=== PATIENT | male | born 1965 | race Caucasian/White ===

== ENCOUNTER 2020-09-22 10:10 | Observation (INO) ==
[2020-09-22] MEDS ORDERED: *HR* LORazepam 2 MG/ML VIAL ONE (10:16)
[2020-09-22] MEDS ORDERED: levETIRAcetam 1,000 MG in 0.9 % Sodium Chloride 100 ML IVPB ONE (10:20)
[2020-09-22] MEDS ORDERED: 0.9 % Sodium Chloride 1,000 ML IVC ONE (10:20)
[2020-09-22] MEDS ORDERED: Dexamethasone 4 MG/ML VIAL IVP ONE (10:20)
[2020-09-22] MEDS ORDERED: Ondansetron 4 MG/2 ML VIAL IVP ONE (10:22)
[2020-09-22] MEDS ORDERED: *HR* LORazepam 2 MG/ML VIAL IVP ONE (10:31)
[2020-09-22 10:49] LABS: Basophils % 0.3 %; Eosinophils % 0.1 %; Hematocrit 49.3 % (37.5-50.1); Hemoglobin 16.1 g/dL (12.9-16.9); Immature Granulocytes % 1.1 % (0-4); Lymphocytes # 3.9 K/mcL (0.6-4.6); Mean Corpuscular HGB Conc 32.7 g/dL (31.6-35.5); Mean Corpuscular Hemoglobin 30.8 pg (28.0-33.3); Mean Corpuscular Volume 94.3 fL (83.0-100.0); Mean Platelet Volume 11.3 fL (9.4-12.4); Monocytes # 0.8 K/mcL (0.0-1.3); Monocytes % 5.4 %; Neutrophils # 9.9 K/mcL (1.6-8.9); Platelet Count 120 K/mcL (140-400); Red Blood Count 5.23 M/mcL (4.19-5.50); Red Cell Distribution Width 13.4 % (11.5-14.5); Segmented Neutrophils % 67.1 %; White Blood Count 14.8 K/mcL (4.3-11.1)
[2020-09-22 11:11] LABS: Alanine Aminotransferase 16 Units/L (7-52); Albumin 4.2 g/dL (3.5-5.7); Albumin/Globulin Ratio 1.6 (1.1-2.2); Alkaline Phosphatase 58 Units/L (34-104); Aspartate Amino Transferase 18 Units/L (13-39); BUN/Creatinine Ratio 13 (6-26); Bilirubin,Total 0.7 mg/dL (0.3-1.0); Blood Urea Nitrogen 9 mg/dL (6-20); Calcium 8.9 mg/dL (8.6-10.3); Carbon Dioxide 31 mEq/L (23-29); Chloride 102 mEq/L (98-107); Globulin 2.7 g/dL (2.4-3.5); Glucose 161 mg/dL (70-105); Magnesium 1.9 mg/dL (1.6-2.6); Osmolality,Calculated 290 (280-300); Potassium 3.7 mEq/L (3.5-5.1); Sodium 139 mEq/L (136-145); Total Protein 6.9 g/dL (6.4-8.9); eGFR For African Americans > 60 (> 60); eGFR For Non-African Americans > 60 (> 60)
[2020-09-22] MEDS ORDERED: Ondansetron 4 MG/2 ML VIAL IVP PRN (16:22)
[2020-09-22] MEDS ORDERED: Naloxone 0.4 MG/ML INJ IVP PRN (16:22)
[2020-09-22] MEDS ORDERED: 0.9 % Sodium Chloride 1,000 ML IVC SCH (16:45)
[2020-09-22] MEDS ORDERED: *HR* LORazepam 1 MG TABLET PO PRN (16:48)
[2020-09-22] MEDS ORDERED: *HR* Heparin 5,000 UNIT/ML VIAL SQ SCH (18:00)
[2020-09-22] MEDS ORDERED: Ketorolac 15 MG/ML VIAL IVP ONE (19:24)
[2020-09-22] MEDS ORDERED: Melatonin 3 MG TABLET PO SCH (21:00)
[2020-09-22] MEDS ORDERED: levETIRAcetam 250 MG TABLET PO SCH (21:00)
[2020-09-22] MEDS ORDERED: LACOSAMIDE 200 MG PO SCH (21:00)
[2020-09-22] MEDS ORDERED: Divalproex (12 HR) 500 MG TABLET PO SCH (21:00)
[2020-09-22 23:58] VITALS: BP 149/94
[2020-09-23] MEDS ORDERED: TROSPIUM CHLORIDE 60 MG PO SCH (09:00)
[2020-09-23] MEDS ORDERED: amLODIPine 5 MG TABLET PO SCH (09:00)
[2020-09-23] MEDS ORDERED: FLUoxetine 20 MG CAPSULE PO SCH (09:00)
== END 2020-09-22 21:17 | disposition short-term general hospital (02) ==
LOC: EMEROOARM 10:10 → 2NNU 10:10
PROVIDERS: ADMIT General Practice; ATTEND General Practice

== ENCOUNTER 2021-03-14 16:08 | Observation (INO) ==
[2021-03-14] MEDS ORDERED: Isovue-370 500 ML BOTTLE IVP ONE (19:08)
[2021-03-14] MEDS ORDERED: Tdap (Boostrix) Vaccine 0.5 ML SYRINGE IM ONE (19:11)
[2021-03-14 19:26] LABS: Basophils # 0.1 K/mcL (0.0-0.2); Basophils % 0.7 %; Eosinophils # 0.4 K/mcL (0.0-0.6); Eosinophils % 5.6 %; Hematocrit 42.9 % (37.5-50.1); Hemoglobin 14.3 g/dL (12.9-16.9); Immature Granulocytes % 0.3 % (0-4); Lymphocytes # 2.6 K/mcL (0.6-4.6); Lymphocytes % 37.8 %; Mean Corpuscular HGB Conc 33.3 g/dL (31.6-35.5); Mean Corpuscular Hemoglobin 31.3 pg (28.0-33.3); Mean Corpuscular Volume 93.9 fL (83.0-100.0); Mean Platelet Volume 11.4 fL (9.4-12.4); Monocytes # 0.9 K/mcL (0.0-1.3); Monocytes % 12.4 %; Platelet Count 163 K/mcL (140-400); Red Blood Count 4.57 M/mcL (4.19-5.50); Red Cell Distribution Width 12.5 % (11.5-14.5); Segmented Neutrophils % 43.2 %; White Blood Count 6.8 K/mcL (4.3-11.1)
[2021-03-14 19:42] LABS: INR 1.1; Prothrombin Time 12.8 Seconds (9.4-12.1)
[2021-03-14 19:53] LABS: Alanine Aminotransferase 18 Units/L (7-52); Albumin/Globulin Ratio 1.5 (1.1-2.2); Alkaline Phosphatase 69 Units/L (34-104); Aspartate Amino Transferase 27 Units/L (13-39); BUN/Creatinine Ratio 16 (6-26); Bilirubin,Direct 0.1 mg/dL (0.0-0.2); Bilirubin,Indirect 0.5 mg/dL (0.0-1.0); Bilirubin,Total 0.6 mg/dL (0.3-1.0); Blood Urea Nitrogen 14 mg/dL (6-20); Calcium 9.3 mg/dL (8.6-10.3); Carbon Dioxide 32 mEq/L (23-29); Chloride 102 mEq/L (98-107); Globulin 2.6 g/dL (2.4-3.5); Glucose 90 mg/dL (70-105); Lipase 33 Units/L (11-82); Osmolality,Calculated 294 (280-300); Sodium 142 mEq/L (136-145); Total Protein 6.6 g/dL (6.4-8.9); Troponin I < 0.03 ng/mL (< 0.04); eGFR For African Americans > 60 (> 60); eGFR For Non-African Americans > 60 (> 60)
[2021-03-14 20:04] LABS: Bilirubin,Urine Negative (Negative); Blood,Urine Negative (Negative); Clarity,Urine Clear (Clear); Color,Urine Yellow (Yellow); Glucose,Urine (UA) Normal (Normal); Ketones,Urine Trace mg/dL (Negative); Leukocyte Esterase,Urine Negative (Negative); Nitrite,Urine Negative (Negative); Protein,Urine Trace mg/dL (Neg-Trace); Specific Gravity,Urine 1.027 (1.010-1.025)
[2021-03-14] MEDS ORDERED: levETIRAcetam 250 MG TABLET PO ONE (22:00)
[2021-03-14] MEDS ORDERED: Divalproex (12 HR) 500 MG TABLET PO ONE (22:00)
[2021-03-14] MEDS ORDERED: Potassium Chloride Elixir 20 MEQ/15 ML UDC PO ONE (22:04)
[2021-03-15] MEDS ORDERED: Naloxone 0.4 MG/ML INJ IVP PRN (00:26)
[2021-03-15 02:05] LABS: Basophils % 0.5 %; Hemoglobin 12.9 g/dL (12.9-16.9)
[2021-03-15 02:07] LABS: Eosinophils # 0.3 K/mcL (0.0-0.6); Eosinophils % 4.6 %; Hematocrit 38.3 % (37.5-50.1); Immature Granulocytes % 0.1 % (0-4); Immature Platelets 4.8 % (1.1-6.1); Lymphocytes # 2.4 K/mcL (0.6-4.6); Lymphocytes % 32.9 %; Mean Corpuscular HGB Conc 33.7 g/dL (31.6-35.5); Mean Corpuscular Hemoglobin 31.4 pg (28.0-33.3); Mean Corpuscular Volume 93.2 fL (83.0-100.0); Mean Platelet Volume 11.1 fL (9.4-12.4); Monocytes # 0.9 K/mcL (0.0-1.3); Monocytes % 11.8 %; Neutrophils # 3.7 K/mcL (1.6-8.9); Platelet Count 137 K/mcL (140-400); Red Blood Count 4.11 M/mcL (4.19-5.50); Red Cell Distribution Width 12.5 % (11.5-14.5); Segmented Neutrophils % 50.1 %; White Blood Count 7.4 K/mcL (4.3-11.1)
[2021-03-15 02:22] LABS: BUN/Creatinine Ratio 12 (6-26); Blood Urea Nitrogen 9 mg/dL (6-20); Calcium 8.6 mg/dL (8.6-10.3); Carbon Dioxide 28 mEq/L (23-29); Chloride 106 mEq/L (98-107); Glucose 139 mg/dL (70-105); Osmolality,Calculated 295 (280-300); Potassium 3.2 mEq/L (3.5-5.1); Sodium 142 mEq/L (136-145); eGFR For African Americans > 60 (> 60); eGFR For Non-African Americans > 60 (> 60)
[2021-03-15] MEDS: *HR* Heparin 5,000 UNIT/ML VIAL SQ SCH ×3 (05:19→20:50)
[2021-03-15] MEDS: levETIRAcetam 250 MG TABLET PO SCH ×2 (08:34→20:48)
[2021-03-15] MEDS: Vitamin E 200 UNIT (90MG) CAPSULE PO SCH ×2 (08:35→20:46)
[2021-03-15] MEDS: FLUoxetine 20 MG CAPSULE PO SCH (08:35)
[2021-03-15] MEDS: amLODIPine 5 MG TABLET PO SCH ×2 (08:36→20:50)
[2021-03-15] MEDS: Divalproex (12 HR) 500 MG TABLET PO SCH ×2 (08:36→20:48)
[2021-03-15] MEDS: Ascorbic Acid 500 MG TABLET PO SCH ×2 (08:36→20:49)
[2021-03-15] MEDS: hydroCHLOROthiazide 25 MG TABLET PO SCH (08:36)
[2021-03-15] MEDS: Cholecalciferol (D-3) 1,000 UNIT (25MCG) TABLET PO SCH (08:39)
[2021-03-15] MEDS ORDERED: LACOSAMIDE 200 MG PO SCH (09:00)
[2021-03-15] MEDS: Acetaminophen 325 MG TABLET PO SCH (20:47)
[2021-03-16] MEDS: Acetaminophen 325 MG TABLET PO SCH ×4 (00:34→17:03)
[2021-03-16 01:28] LABS: Basophils % 0.4 %; Eosinophils # 0.3 K/mcL (0.0-0.6); Eosinophils % 4.2 %; Hematocrit 38.1 % (37.5-50.1); Hemoglobin 12.7 g/dL (12.9-16.9); Immature Granulocytes % 0.3 % (0-4); Immature Platelets 5.6 % (1.1-6.1); Lymphocytes # 2.8 K/mcL (0.6-4.6); Lymphocytes % 41.9 %; Mean Corpuscular HGB Conc 33.3 g/dL (31.6-35.5); Mean Corpuscular Hemoglobin 31.1 pg (28.0-33.3); Mean Corpuscular Volume 93.2 fL (83.0-100.0); Mean Platelet Volume 11.2 fL (9.4-12.4); Monocytes # 0.8 K/mcL (0.0-1.3); Monocytes % 12.1 %; Neutrophils # 2.8 K/mcL (1.6-8.9); Platelet Count 138 K/mcL (140-400); Red Blood Count 4.09 M/mcL (4.19-5.50); Red Cell Distribution Width 12.4 % (11.5-14.5); Segmented Neutrophils % 41.1 %; White Blood Count 6.7 K/mcL (4.3-11.1)
[2021-03-16 01:43] LABS: BUN/Creatinine Ratio 11 (6-26); Blood Urea Nitrogen 8 mg/dL (6-20); Calcium 8.8 mg/dL (8.6-10.3); Carbon Dioxide 29 mEq/L (23-29); Chloride 105 mEq/L (98-107); Glucose 101 mg/dL (70-105); Magnesium 1.7 mg/dL (1.6-2.6); Osmolality,Calculated 294 (280-300); Potassium 3.3 mEq/L (3.5-5.1); Sodium 143 mEq/L (136-145); eGFR For African Americans > 60 (> 60); eGFR For Non-African Americans > 60 (> 60)
[2021-03-16] MEDS: *HR* Heparin 5,000 UNIT/ML VIAL SQ SCH ×3 (04:46→20:24)
[2021-03-16] MEDS: amLODIPine 5 MG TABLET PO SCH ×2 (07:41→20:23)
[2021-03-16] MEDS: Cholecalciferol (D-3) 1,000 UNIT (25MCG) TABLET PO SCH (07:41)
[2021-03-16] MEDS: Ascorbic Acid 500 MG TABLET PO SCH ×2 (07:42→20:23)
[2021-03-16] MEDS: Vitamin E 200 UNIT (90MG) CAPSULE PO SCH ×2 (07:42→20:23)
[2021-03-16] MEDS: FLUoxetine 20 MG CAPSULE PO SCH (07:42)
[2021-03-16] MEDS: hydroCHLOROthiazide 25 MG TABLET PO SCH (07:42)
[2021-03-16] MEDS: Divalproex (12 HR) 500 MG TABLET PO SCH ×2 (07:45→20:33)
[2021-03-16] MEDS: levETIRAcetam 250 MG TABLET PO SCH ×2 (07:45→20:32)
[2021-03-17] MEDS: Acetaminophen 325 MG TABLET PO SCH ×2 (00:16→06:24)
[2021-03-17] MEDS: *HR* Heparin 5,000 UNIT/ML VIAL SQ SCH ×3 (06:24→21:10)
[2021-03-17] MEDS: Vitamin E 200 UNIT (90MG) CAPSULE PO SCH ×2 (07:55→21:07)
[2021-03-17] MEDS: Cholecalciferol (D-3) 1,000 UNIT (25MCG) TABLET PO SCH (07:55)
[2021-03-17] MEDS: hydroCHLOROthiazide 25 MG TABLET PO SCH (07:55)
[2021-03-17] MEDS: amLODIPine 5 MG TABLET PO SCH ×2 (07:56→21:08)
[2021-03-17] MEDS: FLUoxetine 20 MG CAPSULE PO SCH (07:56)
[2021-03-17] MEDS: levETIRAcetam 250 MG TABLET PO SCH ×2 (07:59→21:07)
[2021-03-17] MEDS: Ascorbic Acid 500 MG TABLET PO SCH ×2 (08:00→21:08)
[2021-03-17] MEDS: Divalproex (12 HR) 500 MG TABLET PO SCH ×2 (08:00→21:08)
[2021-03-17] MEDS: Acetaminophen 325 MG TABLET PO PRN (13:56)
[2021-03-18] MEDS: Acetaminophen 325 MG TABLET PO PRN (02:47)
[2021-03-18] MEDS: *HR* Heparin 5,000 UNIT/ML VIAL SQ SCH ×3 (05:41→20:26)
[2021-03-18] MEDS: Cholecalciferol (D-3) 1,000 UNIT (25MCG) TABLET PO SCH (08:47)
[2021-03-18] MEDS: Vitamin E 200 UNIT (90MG) CAPSULE PO SCH ×2 (08:47→20:25)
[2021-03-18] MEDS: hydroCHLOROthiazide 25 MG TABLET PO SCH (08:47)
[2021-03-18] MEDS: Divalproex (12 HR) 500 MG TABLET PO SCH ×2 (08:47→20:25)
[2021-03-18] MEDS: FLUoxetine 20 MG CAPSULE PO SCH (08:47)
[2021-03-18] MEDS: levETIRAcetam 250 MG TABLET PO SCH ×2 (08:48→20:25)
[2021-03-18] MEDS: Ascorbic Acid 500 MG TABLET PO SCH ×2 (08:49→20:25)
[2021-03-18] MEDS: amLODIPine 5 MG TABLET PO SCH ×2 (08:49→20:25)
[2021-03-18] MEDS: Ibuprofen 400 MG TABLET PO PRN ×2 (08:58→15:51)
[2021-03-19] MEDS: *HR* Heparin 5,000 UNIT/ML VIAL SQ SCH ×3 (05:59→21:05)
[2021-03-19] MEDS: Ascorbic Acid 500 MG TABLET PO SCH ×2 (08:24→21:08)
[2021-03-19] MEDS: amLODIPine 5 MG TABLET PO SCH ×2 (08:24→21:08)
[2021-03-19] MEDS: Ibuprofen 400 MG TABLET PO PRN ×4 (08:24→21:07)
[2021-03-19] MEDS: FLUoxetine 20 MG CAPSULE PO SCH (08:25)
[2021-03-19] MEDS: levETIRAcetam 250 MG TABLET PO SCH ×2 (08:25→23:26)
[2021-03-19] MEDS: Cholecalciferol (D-3) 1,000 UNIT (25MCG) TABLET PO SCH (08:25)
[2021-03-19] MEDS: Divalproex (12 HR) 500 MG TABLET PO SCH ×2 (08:25→23:27)
[2021-03-19] MEDS: Vitamin E 200 UNIT (90MG) CAPSULE PO SCH ×2 (08:25→21:07)
[2021-03-19] MEDS: hydroCHLOROthiazide 25 MG TABLET PO SCH (08:26)
[2021-03-20] MEDS: *HR* Heparin 5,000 UNIT/ML VIAL SQ SCH ×3 (06:30→22:38)
[2021-03-20] MEDS: Ibuprofen 400 MG TABLET PO PRN ×2 (10:49→22:41)
[2021-03-20] MEDS: Ascorbic Acid 500 MG TABLET PO SCH ×2 (10:49→22:40)
[2021-03-20] MEDS: Vitamin E 200 UNIT (90MG) CAPSULE PO SCH ×2 (10:49→22:41)
[2021-03-20] MEDS: Cholecalciferol (D-3) 1,000 UNIT (25MCG) TABLET PO SCH (10:50)
[2021-03-20] MEDS: FLUoxetine 20 MG CAPSULE PO SCH (10:50)
[2021-03-20] MEDS: hydroCHLOROthiazide 25 MG TABLET PO SCH (10:50)
[2021-03-20] MEDS: amLODIPine 5 MG TABLET PO SCH ×2 (10:50→22:41)
[2021-03-20] MEDS: Divalproex (12 HR) 500 MG TABLET PO SCH (11:02)
[2021-03-20] MEDS: levETIRAcetam 250 MG TABLET PO SCH ×2 (11:02→22:40)
[2021-03-21] MEDS: Divalproex (12 HR) 500 MG TABLET PO SCH ×3 (01:32→22:08)
[2021-03-21] MEDS: Ibuprofen 400 MG TABLET PO PRN ×2 (06:38→16:36)
[2021-03-21] MEDS: *HR* Heparin 5,000 UNIT/ML VIAL SQ SCH ×3 (06:39→22:08)
[2021-03-21] MEDS: Vitamin E 200 UNIT (90MG) CAPSULE PO SCH ×2 (09:42→22:03)
[2021-03-21] MEDS: amLODIPine 5 MG TABLET PO SCH ×2 (09:43→22:03)
[2021-03-21] MEDS: hydroCHLOROthiazide 25 MG TABLET PO SCH (09:43)
[2021-03-21] MEDS: Ascorbic Acid 500 MG TABLET PO SCH ×2 (09:43→22:03)
[2021-03-21] MEDS: Cholecalciferol (D-3) 1,000 UNIT (25MCG) TABLET PO SCH (09:43)
[2021-03-21] MEDS: FLUoxetine 20 MG CAPSULE PO SCH (09:44)
[2021-03-21] MEDS: levETIRAcetam 250 MG TABLET PO SCH ×2 (09:48→22:08)
[2021-03-21] MEDS ORDERED: *HR* OxyCODONE Immed Rel 5 MG TABLET PO PRN (10:14)
[2021-03-22] MEDS: *HR* Heparin 5,000 UNIT/ML VIAL SQ SCH (05:35)
[2021-03-22 06:45] VITALS: TEMP 98; O2SAT 92
[2021-03-22] MEDS: Vitamin E 200 UNIT (90MG) CAPSULE PO SCH (08:38)
[2021-03-22] MEDS: Ascorbic Acid 500 MG TABLET PO SCH (08:38)
[2021-03-22] MEDS: FLUoxetine 20 MG CAPSULE PO SCH (08:38)
[2021-03-22] MEDS: Cholecalciferol (D-3) 1,000 UNIT (25MCG) TABLET PO SCH (08:39)
[2021-03-22] MEDS: hydroCHLOROthiazide 25 MG TABLET PO SCH (08:39)
[2021-03-22] MEDS: amLODIPine 5 MG TABLET PO SCH (08:39)
[2021-03-22] MEDS: Divalproex (12 HR) 500 MG TABLET PO SCH (08:40)
[2021-03-22] MEDS: levETIRAcetam 250 MG TABLET PO SCH (08:42)
[2021-03-22 10:57] LABS: Adenovirus Not Detected (Not Detect); Bordetella Pertussis Not Detected (Not Detect); Coronavirus 229E Not Detected (Not Detect); Coronavirus HKU1 Not Detected (Not Detect); Coronavirus NL63 Not Detected (Not Detect); Coronavirus OC43 Not Detected (Not Detect); Human Metapneumovirus Not Detected (Not Detect); Human Rhinovirus/Enterovirus Not Detected (Not Detect); Influenza A Subtype 2009 H1 Not Detected (Not Detect); Influenza B Not Detected (Not Detect); Parainfluenza Virus 1 Not Detected (Not Detect); Parainfluenza Virus 2 Not Detected (Not Detect); Parainfluenza Virus 3 Not Detected (Not Detect); Parainfluenza Virus 4 Not Detected (Not Detect); Respiratory Syncytial Virus Not Detected (Not Detect); SARS-CoV-2 Not Detected (Not Detect)
[2021-03-22 10:58] LABS: Chlamydophila pneumoniae Not Detected (Not Detect); Mycoplasma pneumoniae Not Detected (Not Detect)
[2021-03-22 11:13] VITALS: BP 138/74; PULSE 60
== END 2021-03-22 13:47 ==
LOC: EMEROOARM 16:08 → 2ANU 16:08 → SUATTDRO 23:42 → 2ANU 03-15 00:48
PROVIDERS: ADMIT Internal Medicine; ATTEND Internal Medicine

== ENCOUNTER 2021-04-16 16:22 | Observation (INO) ==
[2021-04-16] MEDS ORDERED: diazePAM 10 MG/2 ML SYRINGE IM ONE (16:48)
[2021-04-16] MEDS ORDERED: Ketorolac 15 MG/ML VIAL IM ONE (16:48)
[2021-04-16 20:35] LABS: Basophils % 0.2 %; Eosinophils # 0.1 K/mcL (0.0-0.6); Hematocrit 33.9 % (37.5-50.1); Hemoglobin 11.3 g/dL (12.9-16.9); Immature Granulocytes % 0.4 % (0-4); Lymphocytes # 2.5 K/mcL (0.6-4.6); Lymphocytes % 24.4 %; Mean Corpuscular HGB Conc 33.3 g/dL (31.6-35.5); Mean Corpuscular Volume 93.1 fL (83.0-100.0); Mean Platelet Volume 12.1 fL (9.4-12.4); Monocytes # 1.1 K/mcL (0.0-1.3); Neutrophils # 6.4 K/mcL (1.6-8.9); Platelet Count 109 K/mcL (140-400); Red Blood Count 3.64 M/mcL (4.19-5.50); Red Cell Distribution Width 12.7 % (11.5-14.5); White Blood Count 10.1 K/mcL (4.3-11.1)
[2021-04-16 20:55] LABS: Alanine Aminotransferase 8 Units/L (7-52); Albumin 3.4 g/dL (3.5-5.7); Albumin/Globulin Ratio 1.5 (1.1-2.2); Alkaline Phosphatase 50 Units/L (34-104); Aspartate Amino Transferase 18 Units/L (13-39); BUN/Creatinine Ratio 13 (6-26); Bilirubin,Total 0.6 mg/dL (0.3-1.0); Blood Urea Nitrogen 11 mg/dL (6-20); Calcium 8.5 mg/dL (8.6-10.3); Carbon Dioxide 30 mEq/L (23-29); Chloride 103 mEq/L (98-107); Globulin 2.3 g/dL (2.4-3.5); Glucose 101 mg/dL (70-105); Osmolality,Calculated 292 (280-300); Potassium 3.6 mEq/L (3.5-5.1); Sodium 141 mEq/L (136-145); Total Protein 5.7 g/dL (6.4-8.9); eGFR For African Americans > 60 (> 60); eGFR For Non-African Americans > 60 (> 60)
[2021-04-16] MEDS ORDERED: Naloxone 0.4 MG/ML INJ IVP PRN (21:23)
[2021-04-16] MEDS ORDERED: Melatonin 3 MG TABLET PO PRN (21:23)
[2021-04-16] MEDS ORDERED: Ondansetron 4 MG/2 ML VIAL IVP PRN (21:23)
[2021-04-16] MEDS ORDERED: *HR* Promethazine 25 MG/ML VIAL IM PRN (21:23)
[2021-04-16] MEDS ORDERED: 0.9 % Sodium Chloride 1,000 ML IVC SCH (21:30)
[2021-04-16] MEDS: levETIRAcetam 250 MG TABLET PO SCH (22:26)
[2021-04-16] MEDS: amLODIPine 5 MG TABLET PO SCH (22:26)
[2021-04-16] MEDS: Divalproex (12 HR) 500 MG TABLET PO SCH (22:26)
[2021-04-16] MEDS: *HR* OxyCODONE/APAP 7.5/325 TABLET PO PRN (22:33)
[2021-04-17] MEDS: *HR* HYDROcodone/Acet 5/325 mg TABLET PO PRN ×3 (05:14→22:17)
[2021-04-17] MEDS: *HR* Heparin 5,000 UNIT/ML VIAL SQ SCH ×2 (05:15→16:49)
[2021-04-17 05:19] LABS: Basophils % 0.3 %; Hemoglobin 11.2 g/dL (12.9-16.9); Red Cell Distribution Width 12.5 % (11.5-14.5)
[2021-04-17 05:21] LABS: Eosinophils # 0.2 K/mcL (0.0-0.6); Eosinophils % 2.6 %; Hematocrit 33.6 % (37.5-50.1); Immature Granulocytes % 0.4 % (0-4); Immature Platelets 6.2 % (1.1-6.1); Lymphocytes # 2.5 K/mcL (0.6-4.6); Lymphocytes % 32.7 %; Mean Corpuscular HGB Conc 33.3 g/dL (31.6-35.5); Mean Corpuscular Hemoglobin 30.9 pg (28.0-33.3); Mean Corpuscular Volume 92.6 fL (83.0-100.0); Mean Platelet Volume 11.8 fL (9.4-12.4); Monocytes # 0.9 K/mcL (0.0-1.3); Monocytes % 12.1 %; Neutrophils # 3.9 K/mcL (1.6-8.9); Red Blood Count 3.63 M/mcL (4.19-5.50); Segmented Neutrophils % 51.9 %; White Blood Count 7.6 K/mcL (4.3-11.1)
[2021-04-17 05:23] LABS: Platelet Count 89 K/mcL (140-400)
[2021-04-17 05:39] LABS: Alanine Aminotransferase 5 Units/L (7-52); Albumin 3.2 g/dL (3.5-5.7); Albumin/Globulin Ratio 1.5 (1.1-2.2); Alkaline Phosphatase 50 Units/L (34-104); Aspartate Amino Transferase 12 Units/L (13-39); BUN/Creatinine Ratio 14 (6-26); Bilirubin,Total 0.6 mg/dL (0.3-1.0); Blood Urea Nitrogen 9 mg/dL (6-20); Calcium 8.3 mg/dL (8.6-10.3); Carbon Dioxide 29 mEq/L (23-29); Chloride 105 mEq/L (98-107); Globulin 2.1 g/dL (2.4-3.5); Glucose 98 mg/dL (70-105); Osmolality,Calculated 289 (280-300); Potassium 2.8 mEq/L (3.5-5.1); Sodium 140 mEq/L (136-145); Total Protein 5.3 g/dL (6.4-8.9); eGFR For African Americans > 60 (> 60); eGFR For Non-African Americans > 60 (> 60)
[2021-04-17] MEDS: levETIRAcetam 250 MG TABLET PO SCH ×2 (08:46→21:36)
[2021-04-17] MEDS: Zinc Sulfate 220 MG CAPSULE PO SCH (08:47)
[2021-04-17] MEDS: Ascorbic Acid 500 MG TABLET PO SCH ×2 (08:47→21:36)
[2021-04-17] MEDS: Vitamin E 200 UNIT (90MG) CAPSULE PO SCH ×3 (08:47→21:36)
[2021-04-17] MEDS: Cholecalciferol (D-3) 1,000 UNIT (25MCG) TABLET PO SCH (08:47)
[2021-04-17] MEDS: FLUoxetine 20 MG CAPSULE PO SCH (08:47)
[2021-04-17] MEDS: Divalproex (12 HR) 500 MG TABLET PO SCH ×2 (08:47→21:36)
[2021-04-17] MEDS: amLODIPine 5 MG TABLET PO SCH ×2 (08:48→21:36)
[2021-04-17] MEDS: Losartan/HCTZ 50-12.5 TABLET PO SCH (08:48)
[2021-04-17] MEDS: *HR* OxyCODONE/APAP 7.5/325 TABLET PO PRN (08:56)
[2021-04-17] MEDS: Acetaminophen 325 MG TABLET PO PRN (16:48)
[2021-04-18] MEDS: *HR* Heparin 5,000 UNIT/ML VIAL SQ SCH ×2 (06:03→20:50)
[2021-04-18] MEDS ORDERED: Simethicone 80 MG TAB.CHEW PO PRN (06:07)
[2021-04-18] MEDS: *HR* OxyCODONE/APAP 7.5/325 TABLET PO PRN ×3 (06:12→23:16)
[2021-04-18] MEDS: Acetaminophen 325 MG TABLET PO PRN (08:42)
[2021-04-18] MEDS: Losartan/HCTZ 50-12.5 TABLET PO SCH (09:27)
[2021-04-18] MEDS: Cholecalciferol (D-3) 1,000 UNIT (25MCG) TABLET PO SCH (09:27)
[2021-04-18] MEDS: Vitamin E 200 UNIT (90MG) CAPSULE PO SCH ×3 (09:27→20:50)
[2021-04-18] MEDS: FLUoxetine 20 MG CAPSULE PO SCH (09:27)
[2021-04-18] MEDS: Zinc Sulfate 220 MG CAPSULE PO SCH (09:28)
[2021-04-18] MEDS: Ascorbic Acid 500 MG TABLET PO SCH ×2 (09:28→20:50)
[2021-04-18] MEDS: amLODIPine 5 MG TABLET PO SCH ×2 (09:28→20:50)
[2021-04-18] MEDS: levETIRAcetam 250 MG TABLET PO SCH ×2 (09:29→20:50)
[2021-04-18] MEDS: Divalproex (12 HR) 500 MG TABLET PO SCH ×2 (09:29→20:50)
[2021-04-19] MEDS: *HR* Heparin 5,000 UNIT/ML VIAL SQ SCH ×2 (05:22→17:55)
[2021-04-19] MEDS: Vitamin E 200 UNIT (90MG) CAPSULE PO SCH ×3 (08:41→20:29)
[2021-04-19] MEDS: Ascorbic Acid 500 MG TABLET PO SCH ×2 (08:42→20:29)
[2021-04-19] MEDS: levETIRAcetam 250 MG TABLET PO SCH ×2 (08:42→20:28)
[2021-04-19] MEDS: Losartan/HCTZ 50-12.5 TABLET PO SCH (08:42)
[2021-04-19] MEDS: Zinc Sulfate 220 MG CAPSULE PO SCH (08:42)
[2021-04-19] MEDS: FLUoxetine 20 MG CAPSULE PO SCH (08:42)
[2021-04-19] MEDS: Cholecalciferol (D-3) 1,000 UNIT (25MCG) TABLET PO SCH (08:43)
[2021-04-19] MEDS: Divalproex (12 HR) 500 MG TABLET PO SCH ×2 (08:43→20:28)
[2021-04-19] MEDS: amLODIPine 5 MG TABLET PO SCH ×2 (08:43→20:28)
[2021-04-19] MEDS: *HR* OxyCODONE/APAP 7.5/325 TABLET PO PRN ×2 (10:38→20:28)
[2021-04-19] MEDS: *HR* HYDROcodone/Acet 5/325 mg TABLET PO PRN (12:54)
[2021-04-19] MEDS: Sennosides/Docusate Sodium TABLET PO PRN (20:29)
[2021-04-20] MEDS: *HR* HYDROcodone/Acet 5/325 mg TABLET PO PRN ×2 (04:11→20:54)
[2021-04-20] MEDS: *HR* Heparin 5,000 UNIT/ML VIAL SQ SCH ×2 (04:11→17:06)
[2021-04-20 08:11] LABS: BUN/Creatinine Ratio 16 (6-26); Blood Urea Nitrogen 13 mg/dL (6-20); Calcium 8.5 mg/dL (8.6-10.3); Carbon Dioxide 30 mEq/L (23-29); Chloride 104 mEq/L (98-107); Glucose 93 mg/dL (70-105); Magnesium 1.9 mg/dL (1.6-2.6); Osmolality,Calculated 290 (280-300); Phosphorous 5.2 mg/dL (2.7-4.5); Potassium 3.7 mEq/L (3.5-5.1); Sodium 140 mEq/L (136-145); eGFR For African Americans > 60 (> 60); eGFR For Non-African Americans > 60 (> 60)
[2021-04-20] MEDS: Divalproex (12 HR) 500 MG TABLET PO SCH ×2 (09:14→20:55)
[2021-04-20] MEDS: FLUoxetine 20 MG CAPSULE PO SCH (09:14)
[2021-04-20] MEDS: Vitamin E 200 UNIT (90MG) CAPSULE PO SCH ×3 (09:14→20:54)
[2021-04-20] MEDS: levETIRAcetam 250 MG TABLET PO SCH ×2 (09:14→20:54)
[2021-04-20] MEDS: amLODIPine 5 MG TABLET PO SCH ×2 (09:15→20:54)
[2021-04-20] MEDS: Cholecalciferol (D-3) 1,000 UNIT (25MCG) TABLET PO SCH (09:15)
[2021-04-20] MEDS: Zinc Sulfate 220 MG CAPSULE PO SCH (09:15)
[2021-04-20] MEDS: Losartan/HCTZ 50-12.5 TABLET PO SCH (09:15)
[2021-04-20] MEDS: Ascorbic Acid 500 MG TABLET PO SCH ×2 (09:15→20:54)
[2021-04-20] MEDS: *HR* OxyCODONE/APAP 7.5/325 TABLET PO PRN (14:56)
[2021-04-20] MEDS: Sennosides/Docusate Sodium TABLET PO PRN (20:55)
[2021-04-21 04:45] LABS: Basophils % 0.4 %; Eosinophils # 0.3 K/mcL (0.0-0.6); Eosinophils % 4.8 %; Hematocrit 34.9 % (37.5-50.1); Hemoglobin 11.6 g/dL (12.9-16.9); Immature Granulocytes % 0.4 % (0-4); Lymphocytes # 2.3 K/mcL (0.6-4.6); Lymphocytes % 32.2 %; Mean Corpuscular HGB Conc 33.2 g/dL (31.6-35.5); Mean Corpuscular Hemoglobin 30.9 pg (28.0-33.3); Mean Corpuscular Volume 93.1 fL (83.0-100.0); Mean Platelet Volume 10.6 fL (9.4-12.4); Monocytes # 0.7 K/mcL (0.0-1.3); Monocytes % 10.3 %; Neutrophils # 3.6 K/mcL (1.6-8.9); Platelet Count 136 K/mcL (140-400); Red Blood Count 3.75 M/mcL (4.19-5.50); Red Cell Distribution Width 13.1 % (11.5-14.5); Segmented Neutrophils % 51.9 %
[2021-04-21 05:09] LABS: BUN/Creatinine Ratio 18 (6-26); Blood Urea Nitrogen 14 mg/dL (6-20); Calcium 8.6 mg/dL (8.6-10.3); Carbon Dioxide 31 mEq/L (23-29); Chloride 100 mEq/L (98-107); Glucose 97 mg/dL (70-105); Magnesium 1.8 mg/dL (1.6-2.6); Osmolality,Calculated 286 (280-300); Potassium 3.5 mEq/L (3.5-5.1); Sodium 138 mEq/L (136-145); eGFR For African Americans > 60 (> 60); eGFR For Non-African Americans > 60 (> 60)
[2021-04-21] MEDS: *HR* Heparin 5,000 UNIT/ML VIAL SQ SCH (07:10)
[2021-04-21] MEDS: Cholecalciferol (D-3) 1,000 UNIT (25MCG) TABLET PO SCH (08:37)
[2021-04-21] MEDS: Ascorbic Acid 500 MG TABLET PO SCH (08:37)
[2021-04-21] MEDS: Vitamin E 200 UNIT (90MG) CAPSULE PO SCH (08:37)
[2021-04-21] MEDS: FLUoxetine 20 MG CAPSULE PO SCH (08:37)
[2021-04-21] MEDS: Zinc Sulfate 220 MG CAPSULE PO SCH (08:38)
[2021-04-21] MEDS: *HR* HYDROcodone/Acet 5/325 mg TABLET PO PRN (08:38)
[2021-04-21] MEDS: amLODIPine 5 MG TABLET PO SCH (08:38)
[2021-04-21] MEDS: Divalproex (12 HR) 500 MG TABLET PO SCH (08:38)
[2021-04-21] MEDS: levETIRAcetam 250 MG TABLET PO SCH (08:39)
[2021-04-21] MEDS: Losartan/HCTZ 50-12.5 TABLET PO SCH (08:39)
[2021-04-21 09:49] LABS: Adenovirus Not Detected (Not Detect); Bordetella Pertussis Not Detected (Not Detect); Chlamydophila pneumoniae Not Detected (Not Detect); Coronavirus 229E Not Detected (Not Detect); Coronavirus HKU1 Not Detected (Not Detect); Coronavirus NL63 Not Detected (Not Detect); Coronavirus OC43 Not Detected (Not Detect); Human Metapneumovirus Not Detected (Not Detect); Human Rhinovirus/Enterovirus Not Detected (Not Detect); Influenza A Subtype 2009 H1 Not Detected (Not Detect); Influenza B Not Detected (Not Detect); Mycoplasma pneumoniae Not Detected (Not Detect); Parainfluenza Virus 1 Not Detected (Not Detect); Parainfluenza Virus 2 Not Detected (Not Detect); Parainfluenza Virus 3 Not Detected (Not Detect); Parainfluenza Virus 4 Not Detected (Not Detect); Respiratory Syncytial Virus Not Detected (Not Detect); SARS-CoV-2 Not Detected (Not Detect)
[2021-04-21 11:15] VITALS: BP 165/83; PULSE 60; TEMP 97.7; O2SAT 92
== END 2021-04-21 13:30 ==
LOC: 4WAOSI 16:22 → EMEROOARM 16:22 → SUATTDRO 20:20 → 4WAOSI 21:08
PROVIDERS: ADMIT Family Medicine; ATTEND Pharmacist